=== PATIENT | female | born 1955 | race Caucasian/White ===

== ENCOUNTER → 2021-02-03 09:14 | Outpatient (BNVA) | payer SELFPAY | PROVIDERS: Visit Provider Dermatology | DX: E03.9 Hypothyroidism, unspecified (principal) ==

== ENCOUNTER → 2022-01-26 09:15 | Outpatient (BNVA) | payer SELFPAY | PROVIDERS: PCP Nurse Practitioner Family; Visit Provider Dermatology | DX: E03.9 Hypothyroidism, unspecified (principal) ==

== ENCOUNTER → 2022-12-31 10:13 | Outpatient (BNVA) | payer MEDICARE, SELFPAY | PROVIDERS: PCP Nurse Practitioner; Visit Provider Nurse Practitioner | DX: M25.569 Pain in unspecified knee (principal) | CPT/HCPCS: 73562 ==

== ENCOUNTER 2023-02-17 06:00 | Outpatient (RCR) | payer MEDICARE, SELFPAY | END 2023-03-14 23:59 | disposition home or self-care (01) | LOC: WPT 06:00 | PROVIDERS: Visit Provider Nurse Practitioner | DX: M25.562 Pain in left knee (principal) | CPT/HCPCS: 97110; 97112; 97140; 97530 ==

== ENCOUNTER 2023-03-15 06:00 | Outpatient (RCR) | payer MEDICARE, SELFPAY | END 2023-04-14 23:59 | disposition home or self-care (01) | LOC: WPT 06:00 | PROVIDERS: Visit Provider Nurse Practitioner | DX: M25.562 Pain in left knee (principal) | CPT/HCPCS: 97110; 97112; 97140; 97530 ==

== ENCOUNTER 2023-04-15 06:00 | Outpatient (RCR) | payer MEDICARE, SELFPAY | END 2023-05-14 23:59 | disposition home or self-care (01) | LOC: WPT 06:00 | PROVIDERS: Visit Provider Nurse Practitioner | DX: M25.562 Pain in left knee (principal) | CPT/HCPCS: 97110; 97112; 97530 ==

== ENCOUNTER → 2023-09-21 11:26 | Outpatient (BNVA) | payer MEDICARE, SELFPAY | PROVIDERS: PCP Nurse Practitioner; Visit Provider Nurse Practitioner Family | DX: E03.9 Hypothyroidism, unspecified (principal); Z13.6 Encounter for screening for cardiovascular disorders; Z79.899 Other long term (current) drug therapy; R22.31 Localized swelling, mass and lump, right upper limb; Z12.11 Encounter for screening for malignant neoplasm of colon; Z80.0 Family history of malignant neoplasm of digestive organs | CPT/HCPCS: 80053; 80061; 81003; 83036; 84443; 85025 ==

== ENCOUNTER 2023-10-04 09:47 | Outpatient (CLI) | payer MEDICARE, SELFPAY ==
--- NOTE | 2023-10-04 09:52 | MM_ITS ---
WS: [id number] DIAGNOSTIC BILATERAL DIGITAL BREAST TOMOSYNTHESIS MAMMOGRAPHY WITH CAD RIGHT breast ultrasound, limited HISTORY: RT AXILLARY MASS, prior biopsy RIGHT breast. COMPARISON: No prior mammograms made available for review. Unsuccessful attempts at retrieving prior mammograms. TECHNIQUE: Bilateral craniocaudad, mediolateral oblique, and mediolateral views are submitted with to mosynthesis and SM. RIGHT MLO spot compression. Computer aided detection utilized. Breast composition: There are scattered areas of fibroglandular density. No suspicious masses or calc ifications within the RIGHT breast. There is a marker placed along the palpable site in the axillary tail. There is an underlying fatty mass incompletely visualized measuring at least 7.2 x 4.7 cm. This will be evaluated by ultrasound. There is a linear scar along the central RIGHT breast. RIGHT breast ultrasound, limited. There is a well-circumscribed mass nearly isoechoic to the remaining breast parenchyma and adjacent s oft tissues. This mass is incompletely included due to its large size. Mass measures 5.1 x 1.8 x 6.6 cm. IMPRESSION: MM/[place] [id number] BI-RADS: 2-Benign FOLLOW UP: 1 Year Follow-up Palpable mass in the RIGHT axilla corresponds to a very large lipoma. This is a fat-containing mass both on mammography and ultrasound.
--- NOTE | 2023-10-04 11:15 | US_ITS ---
WS: [id number] DIAGNOSTIC BILATERAL DIGITAL BREAST TOMOSYNTHESIS MAMMOGRAPHY WITH CAD RIGHT breast ultrasound, limited HISTORY: RT AXILLARY MASS, prior biopsy RIGHT breast. COMPARISON: No prior mammograms made available for review. Unsuccessful attempts at retrieving prior mammograms. TECHNIQUE: Bilateral craniocaudad, mediolateral oblique, and mediolateral views are submitted with to mosynthesis and SM. RIGHT MLO spot compression. Computer aided detection utilized. Breast composition: There are scattered areas of fibroglandular density. No suspicious masses or calc ifications within the RIGHT breast. There is a marker placed along the palpable site in the axillary tail. There is an underlying fatty mass incompletely visualized measuring at least 7.2 x 4.7 cm. This will be evaluated by ultrasound. There is a linear scar along the central RIGHT breast. RIGHT breast ultrasound, limited. There is a well-circumscribed mass nearly isoechoic to the remaining breast parenchyma and adjacent s oft tissues. This mass is incompletely included due to its large size. Mass measures 5.1 x 1.8 x 6.6 cm. IMPRESSION: US/US breast RT limited* [id number] BI-RADS: 2-Benign FOLLOW UP: 1 Year Follow-up Palpable mass in the RIGHT axilla corresponds to a very large lipoma. This is a fat-containing mass both on mammography and ultrasound.
== END 2023-10-04 09:48 | disposition home or self-care (01) ==
LOC: RAD 09:49
PROVIDERS: PCP Nurse Practitioner; Visit Provider Nurse Practitioner Family
DX: N63.31 Unspecified lump in axillary tail of the right breast (principal); R92.321 Mammographic fibroglandular density, right breast
CPT/HCPCS: 76642; 77062; 99204; G0279

== ENCOUNTER → 2023-12-14 11:54 | Outpatient (BNVA) | payer MEDICARE, SELFPAY | PROVIDERS: PCP Nurse Practitioner; Visit Provider Surgery | DX: Z80.0 Family history of malignant neoplasm of digestive organs (principal); R22.31 Localized swelling, mass and lump, right upper limb | CPT/HCPCS: 99214 ==

== ENCOUNTER 2024-01-02 09:31 | Day surgery (SDC) | payer MEDICARE, SELFPAY ==
[2024-01-02] VITALS (10 sets, daily range): BP systolic 111–155; BP diastolic 74–89; PULSE 63–99; RESP 10–17; TEMP 36.1–36.4; O2SAT 95–100; BMI 30.2
--- NOTE | 2024-01-02 09:09 | W.PM.OPSUD ---
Surgery/Procedure H&P Update DATE OF PROCEDURE: January 02, 2024 DATE H&P PERFORMED: 12/14/23 H&P UPDATE INFORMATION: I have reviewed H&P completed within last 30 days, I have examined patient prior to procedure, No changes to prior documentation and H&P is in [facility] EMR on date indicated PLANNED PROCEDURE: Operation Date: 01/02/24 11:20 Proposed Procedures p Excision Mass/Lesion/Cyst Upper Torso/He/excision right axilla mass 53812, R22.31(Right) - Kolby Lopez MD
[2024-01-02] MEDS: sodium chloride 0.9% 1,000 ML 30 ML IV (10:07)
--- NOTE | 2024-01-02 10:22 | ANES.PREANE2 ---
Pre-Anesthetic Assessment Height/Weight: Height 1.7 m Weight 87.543 kg Temp Pulse Resp BP Pulse Ox O2 Del Method 97.5 F L 63 17 111/74 97 Room Air 01/02/24 09:49 01/02/24 09:49 01/02/24 09:49 01/02/24 09:49 01/02/24 09:49 01/02/24 09:49 Operation Date: 01/02/24 11:20 Proposed Procedures p Excision Mass/Lesion/Cyst Upper Torso/He/excision right axilla mass 42629, R22.31(Right) - Kolby Lopez MD Familial anesthetic complications: none Was Beta Isaias taken within 24 hours: N/A Was Clonidine taken within 24 hours: N/A Last intake: Intake Last Liquid Date 01/01/24 Last Liquid Time 20:30 Last Solid Date 01/01/24 Last Solid Time 19:00 Social No alcohol and No tobacco Exam alert, oriented x 3, clear to auscultation bilaterally and regular rate & rhythm Airway Submandibular: within normal limits Cervical ROM: within normal limits Mallampati: Class II Dentition: full Metabolic Thyroid Disease Obese Neuropsych Anxiety and Depression Anesthetic Plan ASA status: 2 Anesthesia: General Medications/Allergies Home Medications Medication Instructions Recorded Confirmed Last Taken Type meclizine 25 mg tablet 25 mg PO DAILY 90 days #90 tabs 11/02/21 12/31/23 Unknown Rx fluticasone propionate 50 2 spray intranasal DAILY #16 grams 08/27/22 12/31/23 01/01/24 Rx mcg/actuation nasal spray,suspension (Flonase Allergy Relief) triamcinolone acetonide 0.1 % 1 applic topical BID #80 grams 04/07/23 12/31/23 Unknown Rx topical cream cyclobenzaprine 10 mg tablet 10 mg PO TID #90 tabs 06/28/23 12/31/23 01/01/24 Rx diclofenac sodium 1 % topical gel 2 g topical QID #100 grams 06/28/23 12/31/23 Unknown Rx (Voltaren Arthritis Pain) gabapentin 100 mg capsule 200 mg (2 x 100 mg) PO TID 30 days 06/28/23 12/31/23 Unknown Rx #180 caps levothyroxine 100 mcg tablet 100 mcg PO DAILY 12/31/23 12/31/23 01/01/24 History paroxetine HCl 40 mg tablet 40 mg PO DAILY 12/31/23 12/31/23 01/01/24 History Allergies Allergy/AdvReac Type Severity Reaction Status Date / Time estrogens, conjugated Allergy swelling Verified 12/14/23 12:56 [From Premarin] Current Medications Generic Name Dose Route Start Last Admin Trade Name Freq PRN Reason Stop Dose Admin Sodium Chloride 1,000 mls @ 30 mls/hr 01/02/24 09:30 01/02/24 10:07 Sodium Chloride 0.9% IV 01/03/24 09:29 30 mls/hr .Q24H SRIDHAR Administration PFSH Anesthesia Medical History Family history of colon cancer in mother History of colon cancer in mother and grandmother. Mass of right axilla Encounter for screening for cardiovascular disorders Anxiety and depression Dizziness Rhus dermatitis Hypothyroidism Surgical History Status post bariatric surgery Status post lung surgery Status post cholecystectomy Status post hysterectomy Family History Other Cancer Social History Smoking and tobacco/nicotine status: never used tobacco/nicotine Alcohol intake: current Alcohol intake frequency: holidays/special occasions only Alcohol type: wine Data Anesthesia Cardiac Studies: No Data to Display
[2024-01-02] MEDS: ceFAZolin 2,000 MG in sodium chloride 0.9% (plus) 50 ML 100 MG IV (10:41)
[2024-01-02] MEDS: BUPivacaine 0.25% INJ 10 mL INJECTION (11:04)
[2024-01-02] MEDS: lidocaine-epi 1% 20 mL INJ INJECTION (11:04)
--- NOTE | 2024-01-02 11:24 | PM.OP ---
Operative Report Date of procedure: January 02, 2024 Pre-op diagnosis: Right axillary mass Post-op diagnosis: Same Post-op findings: There was a 14 x 8 x 1.5 cm right axillary mass. Mass appeared to be consistent with possibility of a lipoma. Procedure done: Excision of right axillary mass Specimens removed/disposition: Right axillary mass Surgeon: Kolby Lopez MD Engineering Supervisor: SERGIO OR Staff Estimated blood loss: 5 Complications: none apparent Brief History: this is a 68-year-old female with history of a right axillary mass who presents for excision. All risk benefits were documented my preop note. Procedure: Patient was brought into the OR, she was placed in a supine position. General anesthesia was given. The right axilla was prepped and draped in the usual sterile fashion. Timeout was conducted. A 5 cm incision was made on the area overlying the mass following Edison lines. The incision was deepened to the subcutaneous tissue. Embedded in the subcutaneous tissue the mass was noted, I used blunt dissection to go around the mass and deliver it through the incision. The mass appeared to be composed of mostly fatty tissue. Attachments from the mass to the surrounding tissues were taken down using electrocautery. The mass was completely liberated and passed to the scrub table we measure. The mass measured 14 x 8 x 1.5 cm. Hemostasis was verified. I then proceeded to excise the pseudocapsule of the mass to prevent recurrence and lipoma formation. I did this with electrocautery. Hemostasis was then achieved. The wound bed was irrigated with saline. The wound was then closed in layers using #2-0 Vicryl for the deep layer, #3-0 Vicryl for the subcutaneous tissue and #4 Monocryl for the skin. Dermabond was then applied. A compressive dressing was applied on top and the patient had a surgical bra. At the end of the procedure all counts were correct, the patient tolerated well the procedure and was transferred to the PACU in stable condition
--- NOTE | 2024-01-02 13:46 | ANE.PACU2 ---
Inpatient post-anesthesia follow up: Airway intact: Yes Vital signs: Temperature 97.5 F Pulse Rate 70 Respiratory Rate 17 Blood Pressure 131/76 Pulse Oximetry 95 Oxygen Delivery Me thod Room Air Oxygen Flow Rate Fraction of Inspir ed Oxygen Hydration adequate: Yes Nausea and vomiting: No Pain level: 2 Mental status: Baseline
== END 2024-01-02 12:57 | disposition home or self-care (01) ==
PROVIDERS: PCP Nurse Practitioner; Visit Provider Surgery
PROC: (CPT 11406; principal; 2024-01-02 11:10)
DX: D17.21 Benign lipomatous neoplasm of skin and subcutaneous tissue of right arm (principal)
CPT/HCPCS: 11406; 12035; 88304; J0690; J1100; J2405; J2704; J3010; J3490; J7030

== ENCOUNTER → 2024-01-17 10:43 | Outpatient (BNVA) | payer MEDICARE, SELFPAY | PROVIDERS: PCP Nurse Practitioner; Visit Provider Surgery | DX: R22.31 Localized swelling, mass and lump, right upper limb (principal) | CPT/HCPCS: 99024 ==

== ENCOUNTER → 2024-01-30 08:35 | Outpatient (BNVA) | payer MEDICARE, SELFPAY | PROVIDERS: PCP Nurse Practitioner Family; Visit Provider Nurse Practitioner Family | DX: E03.9 Hypothyroidism, unspecified (principal); F41.9 Anxiety disorder, unspecified; F32.A Depression, unspecified; N39.0 Urinary tract infection, site not specified; M54.2 Cervicalgia; G89.29 Other chronic pain; R55 Syncope and collapse; Z79.899 Other long term (current) drug therapy | CPT/HCPCS: 80053; 81000; 85025 ==

== ENCOUNTER 2024-03-29 07:17 | Day surgery (SDC) | payer MEDICARE, SELFPAY ==
[2024-03-29 07:55] VITALS: BP 109/72; PULSE 63; RESP 18; TEMP 36.3; O2SAT 96; BMI 30.2
[2024-03-29] MEDS: sodium chloride 0.9% 1,000 ML 30 ML IV (08:04)
--- NOTE | 2024-03-29 08:33 | W.PM.OPSFHP ---
Same Day Surgery H&P Indication for Procedure/HPI DATE OF PROCEDURE: March 29, 2024 CHIEF COMPLAINT/INDICATIONFOR SURGICAL PROCEDURE: need for screening colonoscopy PREOP DIAGNOSIS: need for screening colonoscopy PLANNED PROCEDURE: Operation Date: 03/29/24 09:00 Proposed Procedures p Colonoscopy 97494, G1015, Z80.0(Not Applicable) - Kolby Lopez MD Medications/Allergies* Home Medications Medication Instructions Recorded Confirmed Type cyclobenzaprine 10 mg tablet 10 mg PO TID PRN Muscle Spasm 03/28/24 03/29/24 History diclofenac sodium 1 % topical gel 2 g topical QID PRN Pain 03/28/24 03/29/24 History (Voltaren Arthritis Pain) fluticasone propionate 50 2 spray intranasal DAILY PRN 03/28/24 03/29/24 History mcg/actuation nasal Congestion spray,suspension (Flonase Allergy Relief) gabapentin 100 mg capsule 200 mg PO TID PRN Pain 03/28/24 03/29/24 History meclizine 25 mg tablet 25 mg PO DAILY PRN Dizziness 03/28/24 03/29/24 History paroxetine HCl 40 mg tablet 40 mg PO DAILY 03/28/24 03/29/24 History triamcinolone acetonide 0.1 % 1 applic topical BID PRN Rash 03/28/24 03/29/24 History topical cream Allergies/Adverse Reactions Allergy/AdvReac Type Severity Reaction Status Date / Time estrogens, conjugated Allergy swelling Verified 03/29/24 07:52 [From Premarin] Current Medications: Generic Name Dose Route Start Last Admin Trade Name Freq PRN Reason Stop Dose Admin Sodium Chloride 1,000 mls @ 30 mls/hr 03/29/24 07:30 03/29/24 08:04 Sodium Chloride 0.9% IV 30 mls/hr .Q24H SRIDHAR Administration Pertinent History/Comorbid Conditions* Medical History (Updated 03/21/24 @ 09:59 by Vinny Morrison LPN) Enrolled in chronic care management Family history of colon cancer in mother History of colon cancer in mother and grandmother. Mass of right axilla Encounter for screening for cardiovascular disorders Anxiety and depression Dizziness Rhus dermatitis Hypothyroidism Surgical History (Updated 02/14/24 @ 07:58 by ADRIANA Gilliam) H/O colonoscopy with polypectomy 2017 Hx of excision of mass Excision of right axillary mass-01/02/24 Dr Lopez Status post bariatric surgery Status post lung surgery Status post cholecystectomy Status post hysterectomy Family History (Updated 10/21/20 @ 13:53 by Roslyn Evans LPN) Cancer Social History Smoking and tobacco/nicotine status: never used tobacco/nicotine Alcohol intake: current Alcohol intake frequency: holidays/special occasions only Alcohol type: wine Pertinent Exam Findings alert, oriented x 3 and clear to auscultation bilaterally Recommendations Surgery/Procedure today Coding Level of Care Code Acute Code for Chg Elvis
--- NOTE | 2024-03-29 08:41 | P.ANESASSM_ITS ---
Pre-Anesthetic Assessment Height/Weight: Height 1.7 m Weight 87.543 kg Temp Pulse Resp BP Pulse Ox O2 Del Method 97.3 F L 63 18 109/72 96 Room Air 03/29/24 07:55 03/29/24 07:55 03/29/24 07:55 03/29/24 07:55 03/29/24 07:55 03/29/24 07:55 Preop Diagnosis: need for screening colonoscopy Operation Date: 03/29/24 09:00 Proposed Procedures p Colonoscopy 78259, G1015, Z80.0(Not Applicable) - Kolby Lopez MD Familial anesthetic complications: none Was Beta Isaias taken within 24 hours: N/A Was Clonidine taken within 24 hours: N/A Last intake: Intake Last Liquid Date 03/28/24 Last Liquid Time 20:00 Last Solid Date 03/27/24 Last Solid Time 19:00 Social No alcohol and No tobacco Exam alert, oriented x 3, clear to auscultation bilaterally and regular rate & rhythm Airway Submandibular: within normal limits Cervical ROM: within normal limits Mallampati: Class II Dentition: full Pulmonary Sleep Apnea CV/HEM None reported None reported Hepatic None reported GI None reported Metabolic Thyroid Disease [facility] [place] Fibromyalgia and Lower Back Pain Neuropsych None reported Anesthetic Plan ASA status: 2 Anesthesia: MAC Risk of > 500 ml blood loss (7ml/kg in children): No Medications/Allergies Home Medications Medication Instructions Recorded Confirmed Last Taken Type sleep apnea machine #1 ea 02/22/24 03/29/24 Unknown Rx levothyroxine 100 mcg tablet 100 mcg PO DAILY #30 tabs 03/12/24 03/29/24 03/28/24 Rx cyclobenzaprine 10 mg tablet 10 mg PO TID PRN Muscle Spasm 03/28/24 03/29/24 03/28/24 History diclofenac sodium 1 % topical gel 2 g topical QID PRN Pain 03/28/24 03/29/24 Unknown History (Voltaren Arthritis Pain) fluticasone propionate 50 2 spray intranasal DAILY PRN 03/28/24 03/29/24 03/28/24 History mcg/actuation nasal Congestion spray,suspension (Flonase Allergy Relief) gabapentin 100 mg capsule 200 mg PO TID PRN Pain 03/28/24 03/29/24 03/28/24 History meclizine 25 mg tablet 25 mg PO DAILY PRN Dizziness 03/28/24 03/29/24 03/28/24 History paroxetine HCl 40 mg tablet 40 mg PO DAILY 03/28/24 03/29/24 03/28/24 History triamcinolone acetonide 0.1 % 1 applic topical BID PRN Rash 03/28/24 03/29/24 Unknown History topical cream Allergies Allergy/AdvReac Type Severity Reaction Status Date / Time estrogens, conjugated Allergy swelling Verified 03/29/24 07:52 [From Premarin] Current Medications Generic Name Dose Route Start Last Admin Trade Name Freq PRN Reason Stop Dose Admin Sodium Chloride 1,000 mls @ 30 mls/hr 03/29/24 07:30 03/29/24 08:04 Sodium Chloride 0.9% IV 30 mls/hr .Q24H SRIDHAR Administration PFSH Anesthesia Medical History (Updated 03/21/24 @ 09:59 by Vinny Morrison LPN) Enrolled in chronic care management Family history of colon cancer in mother History of colon cancer in mother and grandmother. Mass of right axilla Encounter for screening for cardiovascular disorders Anxiety and depression Dizziness Rhus dermatitis Hypothyroidism Surgical History H/O colonoscopy with polypectomy 2018 Hx of excision of mass Excision of right axillary mass-01/02/24 Dr Lopez Status post bariatric surgery Status post lung surgery Status post cholecystectomy Status post hysterectomy Family History Other Cancer Social History Smoking and tobacco/nicotine status: never used tobacco/nicotine Alcohol intake: current Alcohol intake frequency: holidays/special occasions only Alcohol type: wine Data Anesthesia Cardiac Studies: Holter Monitor 02/15/24
[2024-03-29 09:37] VITALS: BP 109/68; PULSE 57; RESP 12; TEMP 36.1; O2SAT 97
[2024-03-29 10:00] VITALS: BP 103/62; PULSE 58; RESP 16; O2SAT 100
--- NOTE | 2024-03-29 10:10 | ANE.PACU2 ---
Inpatient post-anesthesia follow up: Airway intact: Yes Vital signs: Temperature 97.0 F Pulse Rate 58 Respiratory Rate 16 Blood Pressure 103/62 Pulse Oximetry 100 Oxygen Delivery Me thod Room Air Oxygen Flow Rate Fraction of Inspir ed Oxygen Hydration adequate: Yes Nausea and vomiting: No Pain level: 1 Mental status: Baseline
== END 2024-03-29 10:09 | disposition home or self-care (01) ==
PROVIDERS: PCP Nurse Practitioner Family; Visit Provider Surgery
PROC: 0DJD8ZZ Inspection of Lower Intestinal Tract, Via Natural or Artificial Opening Endoscopic (ICD-10-PCS; CPT 45378; principal; 2024-03-29 09:00)
DX: Z12.11 Encounter for screening for malignant neoplasm of colon (principal); Z80.0 Family history of malignant neoplasm of digestive organs; E03.9 Hypothyroidism, unspecified; K64.8 Other hemorrhoids; K64.4 Residual hemorrhoidal skin tags; K57.30 Diverticulosis of large intestine without perforation or abscess without bleeding; G47.30 Sleep apnea, unspecified; M79.7 Fibromyalgia
CPT/HCPCS: G0121; J2704; J7030

== ENCOUNTER 2024-03-29 13:12 | Outpatient (CLI) | payer MEDICARE, SELFPAY ==
--- NOTE | 2024-03-29 13:45 | MR_ITS ---
WS: [id number] MRI CERVICAL SPINE NONCONTRAST HISTORY: M54.12 - Radiculopathy, cervical region COMPARISON: None available. Technique: Multiplanar, multisequence noncontrast imaging of the cervical spine. Straightening of the normal cervical lordosis. C4 retrolisthesis by 2 mm. Disc spaces are very mildly narrowed and desiccated throughout the cervical spine. Signal within the cervical cord is normal. Visualized posterior fossa is unremarkable. Craniocervical junction, C1 and C2 relationship, odontoid process and soft tissues are normal. C2-C3: Mild disc bulging. No stenosis. C3-C4: Small bilateral foraminal osteophytes with mild foraminal stenosis. C4-C5: Osteophytic ridging with annular disc bulging and mild facet disease. Effacement of ventral CS F. Moderate-sized disc osteophyte complexes in the foramina. Moderate central and moderate to severe bilateral foraminal stenosis. C5-C6: Mild annular disc bulging with osteophytic ridging. Small central disc protrusion. Mild centra l stenosis with moderate LEFT and mild RIGHT foraminal stenosis predominately due to osteophytes. C6-C7: Mild osteophytic ridging and annular disc bulging. C7-T1: Normal. T1-2: Shallow LEFT paracentral disc osteophyte. No stenosis. Paraspinal soft tissue are normal. MR/MR cervical spin wo con* [id number] IMPRESSION: 1. C4-5: Moderate central with moderate to severe bilateral foraminal stenosis due to disc osteophyte disease. 2. Slight retrolisthesis of C4 by 2 mm. 3. C5-6: Small central disc protrusion. Mild central stenosis with moderate LE FT and mild RIGHT foraminal stenosis. 4. Small foraminal osteophytes at C3-4 with mild stenosis.
== END 2024-03-29 13:13 | disposition home or self-care (01) ==
LOC: RAD 13:14
PROVIDERS: PCP Nurse Practitioner Family; Visit Provider Nurse Practitioner Family
DX: M48.02 Spinal stenosis, cervical region (principal); M54.12 Radiculopathy, cervical region; M43.12 Spondylolisthesis, cervical region; M50.322 Other cervical disc degeneration at C5-C6 level
CPT/HCPCS: 72141

== ENCOUNTER → 2024-04-17 13:39 | Outpatient (BNVA) | payer MEDICARE, SELFPAY | PROVIDERS: PCP Nurse Practitioner Family; Visit Provider Orthopaedic Surgery | DX: M54.2 Cervicalgia (principal); G89.29 Other chronic pain | CPT/HCPCS: 72050; 99204 ==

== ENCOUNTER 2024-05-10 06:00 | Outpatient (RCR) | payer MEDICARE, SELFPAY | END 2024-05-14 23:59 | disposition home or self-care (01) | LOC: WPT 06:00 | PROVIDERS: Visit Provider Nurse Practitioner Family | DX: M43.10 Spondylolisthesis, site unspecified (principal); M54.2 Cervicalgia; G89.29 Other chronic pain; M25.78 Osteophyte, vertebrae; M48.02 Spinal stenosis, cervical region; M54.12 Radiculopathy, cervical region | CPT/HCPCS: 97161 ==

== ENCOUNTER → 2024-05-14 08:17 | Outpatient (BNVA) | payer MEDICARE, SELFPAY | PROVIDERS: PCP Nurse Practitioner Family; Visit Provider Nurse Practitioner Family | DX: Z13.6 Encounter for screening for cardiovascular disorders (principal); Z79.899 Other long term (current) drug therapy; E03.9 Hypothyroidism, unspecified; E55.9 Vitamin D deficiency, unspecified | CPT/HCPCS: 80053; 80061; 81003; 82306; 83036; 84443; 85025 ==

== ENCOUNTER 2024-05-15 06:00 | Outpatient (RCR) | payer MEDICARE, SELFPAY | END 2024-06-14 23:59 | disposition home or self-care (01) | LOC: WPT 06:00 | PROVIDERS: PCP Nurse Practitioner Family; Visit Provider Nurse Practitioner Family | DX: M43.10 Spondylolisthesis, site unspecified (principal); M54.2 Cervicalgia; G89.29 Other chronic pain; M25.78 Osteophyte, vertebrae; M48.02 Spinal stenosis, cervical region; M54.12 Radiculopathy, cervical region | CPT/HCPCS: 97110; 97112; 97530 ==

== ENCOUNTER → 2024-10-22 14:21 | Outpatient (BNVA) | payer MEDICARE, SELFPAY | PROVIDERS: PCP Nurse Practitioner Family; Visit Provider Nurse Practitioner Family | DX: J40 Bronchitis, not specified as acute or chronic (principal) | CPT/HCPCS: 71046 ==

== ENCOUNTER → 2024-11-01 11:15 | Outpatient (BNVA) | payer MEDICARE, SELFPAY | PROVIDERS: PCP Nurse Practitioner Family; Visit Provider Nurse Practitioner Family | DX: F41.9 Anxiety disorder, unspecified (principal); F32.A Depression, unspecified; E55.9 Vitamin D deficiency, unspecified; E03.9 Hypothyroidism, unspecified; R55 Syncope and collapse; D64.9 Anemia, unspecified; Z79.899 Other long term (current) drug therapy | CPT/HCPCS: 80053; 80061; 81003; 82306; 82728; 83036; 83550; 84443; 85025 ==

== ENCOUNTER → 2025-04-22 16:13 | Outpatient (BNVA) | payer MEDICARE, SELFPAY | PROVIDERS: PCP Nurse Practitioner Family; Visit Provider Nurse Practitioner Family | DX: D50.9 Iron deficiency anemia, unspecified (principal) | CPT/HCPCS: 82607; 82728; 82746; 83550; 83921 ==

== ENCOUNTER 2025-04-23 08:42 | Outpatient (CLI) | payer MEDICARE, SELFPAY ==
--- NOTE | 2025-04-23 08:48 | MM_ITS ---
WS: [id number] BILATERAL 3D TOMOSYNTHESIS DIGITAL SCREENING MAMMOGRAPHY WITH CAD CLINICAL INFORMATION: SCREENING HISTORY: Screening mammogram. No current complaints. COMPARISON: 2023 TECHNIQUE: Bilateral CC and MLO views. FINDINGS: Scattered fibroglandular densities bilaterally. No suspicious focal mass, asymmetry, calcifications, or architectural distortion. No evidence of malignancy. MM/MM scr BI tomosynthesis [id number] IMPRESSION: DENSITY: There are scattered areas of fibroglandular density. BI-RADS: 1 - Negative. FOLLOW UP: 1 Year Follow-up Recommend return to annual screening mammography.
== END 2025-04-23 08:43 | disposition home or self-care (01) ==
LOC: RAD 08:43
PROVIDERS: PCP Nurse Practitioner Family; Visit Provider Nurse Practitioner Family
DX: Z12.31 Encounter for screening mammogram for malignant neoplasm of breast (principal); R92.323 Mammographic fibroglandular density, bilateral breasts
CPT/HCPCS: 77063; 77067